=== PATIENT | female | born 1965 | race Caucasian/White ===

== ENCOUNTER → 2023-01-18 10:05 | Outpatient (CLI) | payer OTHER, SELFPAY ==
--- NOTE | ~2023-01-18 | DEXA_ITS ---
Bone Density Report Name: LINDA FAM Age: 57 Sex: Female Ethnicity: White Date of : 1965 Indication: postmenopausal; screening for osteoporosis; Referring Provider: CONNOR CHURCHILL Study: Bone densitometry was performed. Exam Date: January 18, 2023 Accession number: [id number] Bone Density: Region BMD T-score Z-score Classification AP Spine (L1, L2, L3) 0.688 -3.0 -2.0 Osteoporosis Femoral Neck (Left) 0.604 -2.2 -1.1 Osteopenia Total Hip (Left) 0.741 -1.6 -1.0 Osteopenia Femoral Neck (Right) 0.601 -2.2 -1.2 Osteopenia Total Hip (Right) 0.721 -1.8 -1.1 Osteopenia Total Hip Mean 0.731 -1.7 -1.1 Osteopenia World Health Organization criteria for BMD impression classify patients as: Normal (T-score at or above -1.0), Osteopenia (T-score between -1.0 and -2.5), or Osteoporosis (T-score at or below -2.5). 10-year Fracture Risk: FRAX not reported because: Some T-score for Spine Total or Hip Total or Femoral Neck at or below -2.5 Treated for osteoporosis Clinical Information Provided by Patient: Smokes Is being treated for osteoporosis Has used the following medications: Boniva (i.e. ibandronate), Vitamin D Patient maximum height was 61.0 Menopause Age: 47 Onset of menses at age 17 Number of children 3 Impression: The patient has osteoporosis, based on the Total Spine T-score. The patient has risk factors, including: smoking. Discussion: It is important to ask patients whether they are taking their medications and to encourage continued and appropriate compliance with their osteoporosis therapies to reduce fracture risk. It is also important to review their risk factors and encourage appropriate calcium and vitamin D intakes, exercise, fall prevention and other lifestyle measures. Follow-Up: Consider a repeat BMD and Vertebral Fracture Assessment (VFA) exam in 2 years or sooner if medically necessary, to reassess this patient's status. Reported by: SHERLEY on 01/18/2023 1:19:00 PM. Reviewed, dictated and finalized at location AIjeoma ALARCON
--- NOTE | ~2023-01-18 | MM_ITS ---
EXAMINATION: MM screening gurdeep BI w roxann HISTORY: Screening TECHNIQUE: Craniocaudal and mediolateral oblique 3-D tomosynthesis images were obtained and synthetic 2-D images were generated. CAD analysis was submitted and interpreted. COMPARISON: Comparison to multiple prior studies sequentially, with oldest reviewed study dated 06/27. BREAST PARENCHYMAL COMPOSITION: The breasts are heterogeneously dense, which may obscure small masses . FINDINGS: There is no evidence of suspicious mass, calcification, or architectural distortion to sugg est malignancy in either breast. There has been no suspicious interval change. IMPRESSION: 1. No mammographic evidence of malignancy. 2. Recommend routine screening mammography in one year. BI-RADS Category 1: Negative Reviewed, dictated and finalized at location A. ER DOCK
== END ==
PROVIDERS: PCP Obstetrics & Gynecology Gynecology; Visit Provider Obstetrics & Gynecology Gynecology
DX: Z12.31 Encounter for screening mammogram for malignant neoplasm of breast (principal); Z78.0 Asymptomatic menopausal state; M85.88 Other specified disorders of bone density and structure, other site; M81.0 Age-related osteoporosis without current pathological fracture; M85.852 Other specified disorders of bone density and structure, left thigh; M85.851 Other specified disorders of bone density and structure, right thigh
CPT/HCPCS: 77063; 77067; 77080

== ENCOUNTER 2024-01-04 03:09 | Day surgery (SDC) | payer OTHER, SELFPAY ==
[2023-12-24 15:32] VITALS: BMI 25.0
[2024-01-04 11:30] VITALS: BP 144/63; PULSE 82; RESP 19; TEMP 36.4; O2SAT 98
[2024-01-04] MEDS: LACTATED RINGERS 1,000 ML 150 ML IV CONT (11:42)
--- NOTE | 2024-01-04 11:58 | WPDANESEPPF ---
Anes - Initial Pre Proc Eval Procedure: Operation Date: 01/04/24 12:30 Proposed Procedures p Screening Colonoscopy - Scott Ramirez MD Date/Time: 01/04/24 11:58 Surgeon: Scott Ramirez MD Pre Op Diagnosis: neoplasm screening Patient Data Age: 58 Gender: F Height: 1.55 m Weight: 58 kg Last Vital Signs Temp 36.4 C L 01/04/24 11:30 Pulse 82 01/04/24 11:30 Resp 19 01/04/24 11:30 BP 144/63 H 01/04/24 11:30 Pulse Ox 98 01/04/24 11:30 O2 Del Method Room Air 01/04/24 11:30 Allergies Allergy/AdvReac Type Severity Reaction Status Date / Time clindamycin Allergy Unknown Unknown Verified 01/04/24 11:28 Penicillins Allergy Unknown Unknown Verified 01/04/24 11:28 Home Medications Medication Instructions Recorded Confirmed Type triamcinolone acetonide 0.1 % 1 applic topical BID #30 grams 10/19/23 01/04/24 Rx topical cream zoledronic acid 5 mg/100 mL in 1 ea IV .yearly 10/19/23 01/04/24 History mannitol 5 %-water intravenous piggybck (Reclast) cetirizine 10 mg tablet (Zyrtec) 10 mg PO DAILY 11/23/23 01/04/24 History conjugated estrogens [Premarin] 0.5 g topical 2XW 11/23/23 01/04/24 History duloxetine 30 mg capsule,delayed 30 mg PO DAILY #30 caps 11/23/23 01/04/24 Rx release ergocalciferol (vitamin D2) See Rx Instructions PO .COMPLEX 11/23/23 01/04/24 History Patient hx anesthesia problems: none Family hx anesthesia problems: none Results Review: All pre-operative results and documents have been reviewed as part of the pre-operative evaluation. [facility] Past Medical History Medical History Allergies Arthritis Arthritis of foot, left, degenerative Left ankle pain Metatarsal stress fracture of left foot Osteoporosis Surgical History Surgical History History of back surgery x2 Family History Family History Father Asthma Sibling Asthma Social History Social History (Updated 01/04/24 @ 11:58 by Ricco Bird MD) Social History: no caffeine Smoking packs per day: 0.5 Smoking cigarettes per day: 10.0 Years smoked: 20 Smoking pack-years: 10.00 Smoking status: Former smoker Tobacco type: cigarettes Smoking end date: 03/15/16 Alcohol intake: never Living arrangements: with family Occupation/Education: occupation 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 Informed Consent: The patient's anesthetic plan and its attendant risks and benefits were discussed with the patient/family/POA. Questions were solicited and answers provided to the satisfaction of the patient/family/POA.
--- NOTE | 2024-01-04 12:06 | PM.HPGS ---
History of Present Illness History of Present Illness Consent: Risks, benefits, and alternatives have been discussed and questions answered. Patient agrees to proceed with procedure. Chief complaint: neoplasm screening Narrative: Rosa Isela Dietrich is a 58 year old female here for first screening colonoscopy Review of Systems Review of Systems: All systems reviewed & are unremarkable except as noted in HPI and below PMFSH Past Medical History Medical History (Updated 01/04/24 @ 12:07 by Scott Ramirez MD) Allergies Arthritis Arthritis of foot, left, degenerative Colon cancer screening Left ankle pain Metatarsal stress fracture of left foot Osteoporosis Surgical History Surgical History History of back surgery x2 Family History Family History Father Asthma Sibling Asthma Social History Social History (Updated 01/04/24 @ 11:58 by Ricco Bird MD) Social History: no caffeine Smoking packs per day: 0.5 Smoking cigarettes per day: 10.0 Years smoked: 20 Smoking pack-years: 10.00 Smoking status: Former smoker Tobacco type: cigarettes Smoking end date: 03/15/16 Alcohol intake: never Living arrangements: with family Occupation/Education: occupation 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- [employer] Gender identity (if verbalized by the patient): Female Spiritual care concerns: No Meds Home Medications and Allergies Home Medications Medication Instructions Recorded Confirmed Type triamcinolone acetonide 0.1 % 1 applic topical BID #30 grams 10/19/23 01/04/24 Rx topical cream zoledronic acid 5 mg/100 mL in 1 ea IV .yearly 10/19/23 01/04/24 History mannitol 5 %-water intravenous piggybck (Reclast) cetirizine 10 mg tablet (Zyrtec) 10 mg PO DAILY 11/23/23 01/04/24 History conjugated estrogens [Premarin] 0.5 g topical 2XW 11/23/23 01/04/24 History duloxetine 30 mg capsule,delayed 30 mg PO DAILY #30 caps 11/23/23 01/04/24 Rx release ergocalciferol (vitamin D2) See Rx Instructions PO .COMPLEX 11/23/23 01/04/24 History Allergies Allergy/AdvReac Type Severity Reaction Status Date / Time clindamycin Allergy Unknown Unknown Verified 01/04/24 11:28 Penicillins Allergy Unknown Unknown Verified 01/04/24 11:28 Vital Signs Vital Signs - 24 hr 01/04/24 11:30 Temperature 97.5 F L Pulse Rate 82 Respiratory Rate 19 Blood Pressure 144/63 H Pulse Oximetry 98 Oxygen Delivery Room Air Exam Const: General: comfortable and no acute distress HENMT: Face/Nose/Sinus: Normal nares present Eyes: General: appearance normal, both eyes and all related structures Neck: Neck: no JVD Resp: Auscultation: clear to auscultation bilaterally Cardio: Rate: regular rate Rhythm: regular rhythm GI: Inspection: non-distended GI Palp: Yes Soft to palpation Skin: General skin exam: normal color Neuro: General: gait normal Speech: normal speech Extrem: General: normal to inspection Psych: Mental Status: mental status grossly normal Assessment and Plan Assessment and plan (1) Colon cancer screening: Code(s): Z12.11 - Encounter for screening for malignant neoplasm of colon Status: Acute Assessment and Plan: colonoscopy
[2024-01-04 12:19] VITALS: BP 104/57; PULSE 76; RESP 18; O2SAT 97
[2024-01-04 12:29] VITALS: BP 113/88; PULSE 72; RESP 18; O2SAT 98
[2024-01-04 12:39] VITALS: BP 125/76; PULSE 70; RESP 18; O2SAT 98
== END 2024-01-04 12:44 | disposition home or self-care (01) ==
PROVIDERS: PCP Family Medicine; Visit Provider Internal Medicine Gastroenterology
PROC: 0DJD8ZZ Inspection of Lower Intestinal Tract, Via Natural or Artificial Opening Endoscopic (ICD-10-PCS; CPT 45378; principal; 2024-01-04 12:30)
DX: Z12.11 Encounter for screening for malignant neoplasm of colon (principal); K64.8 Other hemorrhoids; M81.0 Age-related osteoporosis without current pathological fracture; M19.072 Primary osteoarthritis, left ankle and foot; Z98.890 Other specified postprocedural states; Z98.1 Arthrodesis status; Z87.891 Personal history of nicotine dependence
CPT/HCPCS: 45378; J2704; J7120

== ENCOUNTER 2024-02-14 13:12 | Outpatient (CLI) | payer OTHER, SELFPAY ==
--- NOTE | ~2024-02-14 | MM_ITS ---
EXAMINATION: MM screening gurdeep BI w roxann HISTORY: Screening TECHNIQUE: Craniocaudal and mediolateral oblique 3-D tomosynthesis images were obtained and synthetic 2-D images were generated. CAD analysis was submitted and interpreted. COMPARISON: Comparison to multiple prior studies sequentially, with oldest reviewed study dated 11/29. BREAST PARENCHYMAL COMPOSITION: Dense: The breasts are heterogeneously dense, which may obscure small masses FINDINGS: There is no evidence of suspicious mass, calcification, or architectural distortion to sugg est malignancy in either breast. There has been no suspicious interval change. IMPRESSION: 1. No mammographic evidence of malignancy. 2. Recommend routine screening mammography in one year. BI-RADS Category 1: Negative Reviewed, dictated and finalized at location B. SALES ASSISTANT
== END 2024-02-14 13:13 | disposition home or self-care (01) ==
PROVIDERS: PCP Obstetrics & Gynecology Gynecology; Visit Provider Obstetrics & Gynecology Gynecology
DX: Z12.31 Encounter for screening mammogram for malignant neoplasm of breast (principal)
CPT/HCPCS: 77063; 77067

== ENCOUNTER 2025-02-20 10:02 | Outpatient (CLI) | payer OTHER, SELFPAY ==
--- NOTE | ~2025-02-20 | MM_ITS ---
EXAMINATION: MM screening gurdeep BI w roxann HISTORY: Screening. TECHNIQUE: Craniocaudal and mediolateral oblique 3-D tomosynthesis images were obtained and synthetic 2-D images were generated. CAD analysis was submitted and interpreted. COMPARISON: 2023 and 2022 BREAST PARENCHYMAL COMPOSITION: Dense: The breasts are extremely dense FINDINGS: No suspicious masses are seen. There are no suspicious calcifications. No unexplained architectural distortion is seen. There are no skin or nipple abnormalities identified. There is no adenopathy seen on the images submitted. IMPRESSION: No mammographic evidence to suggest malignancy is seen. The patient may return to screening mammography as per ACR guidelines. BI-RADS 1 - Negative. Reviewed, dictated and finalized at location C. AINABILITY DIRECTOR
== END 2025-02-20 10:03 | disposition home or self-care (01) ==
LOC: MICIMG 10:03
PROVIDERS: PCP Obstetrics & Gynecology Gynecology; Visit Provider Obstetrics & Gynecology Gynecology
DX: Z12.31 Encounter for screening mammogram for malignant neoplasm of breast (principal)
CPT/HCPCS: 77063; 77067